=== PATIENT | male | born 1945 | race Caucasian/White ===

== ENCOUNTER 2017-04-01 09:40 | Day surgery (SDC) | payer MEDICARE, MEDICAID ==
[~2017-04-01] VITALS: Ht 188 cm; Wt 86.2 kg
[2017-04-01] VITALS (10 sets, daily range): BP systolic 107–124; BP diastolic 67–83
--- NOTE | 2017-04-01 07:00 | Pre-Procedure Note/Attestation ---
Pre-Procedure Note/Attestation Complete Prior to Procedure Planned Procedure: right Procedure Narrative: rt shoulder scope, sad, mini lilian, rtc repair Indications for Procedure Pre-Operative Diagnosis: rt shoulder rtc tear Attestation I attest that I discussed the nature of the procedure; its benefits; risks and complications; and alternatives (and the risks and benefits of such alternatives ), prior to the procedure, with the patient (or the patient's legal community health program representative). I attest that, if there was a reasonable possibility of needing a blood transfusion, the patient (or the patient's legal community health program representative) was given the [facility] standardized written summary, pursuant to the Uday Neli Blood Safety Act ([place] Health and Safety Code # 1645, as amended). I attest that I re-evaluated the patient just prior to the surgery and that there has been no change in the patient's H&P, except as documented below: NONE DARY GALEANO Apr 01, 2017 07:00
[~2017-04-01 09:40] MED LIST: ceFAZolin 1gm in D5W 55ml IVP ONE; celeBREX 200mg Cap **SURGERY PATIENTS ONLY ORAL ONE; oxyCONTIN 20mg tab ORAL ONE
[2017-04-01] MEDS ORDERED: LR 1000ml 1,000 ML IVLG SCH (10:04)
--- NOTE | 2017-04-01 10:09 | Anethesia Preoperative Eval ---
Anesthesia Pre-op PMH/ROS General Date of Evaluation: Apr 01, 2017 Time of Evaluation: 10:42 Anesthesiologist: Wayne ASA Score: ASA 3 Mallampati Score Class I : Soft palate, uvula, fauces, pillars visible Class II: Soft palate, uvula, fauces visible Class III: Soft palate, base of uvula visible Class IV: Only hard plate visible Mallampati Classification: Class II Surgeon: Mike Diagnosis: R Shoulder Pain Surgical Procedure: R Shoulder Arthroscopy, SAD, Mini Mickey, Rotator Cuff Repair Anesthesia History: none Family History: no anesthesia problems Allergies: Coded Allergies: No Known Allergies (Unverified , 03/31/17) Medications: see eMAR Past Medical History Cardiovascular: Reports: HTN, CAD - CABG, other - HL Pulmonary: Reports: MARGUERITE Hematology/Immune: Reports: other - HIV PSxH Narrative: CABG 2001 Anesthesia Pre-op Phys. Exam Physician Exam Constitutional: NAD Neurologic: CN 2-12 intact Cardiovascular: RRR Respiratory: CTA Gastrointestinal: S/NT/ND Airway Exam Mallampati Score: Class II MO: limited ROM: limited Teeth: intact Anesthesia Pre-op A/P Risk Assessment & Plan Assessment: ASA 3 Plan: GA, R Supraclavicular Block, BIS Status Change Before Surgery: No Pre-Antibiotics Dru Grams Ancef IV Given Within 1 Hr of Incision: Yes Time Given: 11:08 Iglesia Black MD Apr 01, 2017 10:09
--- NOTE | 2017-04-01 10:10 | Immediate Post-Op Evaluation ---
Immediate Post-Op Evalulation Immediate Post-Op Evalulation Procedure: R Shoulder Arthroscopy, SAD, Mini Mickey, Rotator Cuff Repair Date of Evaluation: Apr 01, 2017 Time of Evaluation: 13:25 IV Fluids: 1000 LR Blood Products: 0 Estimated Blood Loss: 20 Urinary Output: 0 Blood Pressure Systolic: 115 Blood Pressure Diastolic: 78 Pulse Rate: 84 Respiratory Rate: 16 O2 Sat by Pulse Oximetry: 100 Temperature (Fahrenheit): 97.4 Pain Score (1-10): 1 Nausea: No Vomiting: No Complications 0 Patient Status: awake, reacts, patent, extubated, none Hydration Status: adequate Dru Grams Ancef IV Given Within 1 Hr of Incision: Yes Time Given: 11:08 Iglesia Black MD Apr 01, 2017 10:10
--- NOTE | 2017-04-01 10:10 | 48 Hour Post Anesthesia Eval ---
Post Anesthesia Evaluation Procedure: R Shoulder Arthroscopy, SAD, Mini Mickey, Rotator Cuff Repair Date of Evaluation: Apr 01, 2017 Time of Evaluation: 15:42 Blood Pressure Systolic: 127 0: 74 Pulse Rate: 63 Respiratory Rate: 18 Temperature (Fahrenheit): 97.6 O2 Sat by Pulse Oximetry: 100 Airway: patent Nausea: No Vomiting: No Pain Intensity: 1 Hydration Status: adequate Cardiopulmonary Status: Stable Mental Status/LOC: patient returned to baseline Follow-up Care/Observations: 0 Post-Anesthesia Complications: 0 Follow-up care needed: ready to discharge Iglesia Black MD Apr 01, 2017 10:10
[2017-04-01] MEDS ORDERED: Ropivacaine 5mg/ml Vial 30ml INJ ONE (10:12)
[2017-04-01] MEDS ORDERED: Midazolam 2mg/2ml Inj IVP PRN (10:15)
[2017-04-01] MEDS ORDERED: Ketorolac 30mg Inj IV PRN (10:15)
[2017-04-01] MEDS ORDERED: Ketorolac 60mg Inj IV PRN (10:15)
[2017-04-01] MEDS ORDERED: oxyCODONE HCL/Acetaminophen 5/325mg ORAL PRN (10:15)
[2017-04-01] MEDS ORDERED: Hydromorphone 0.5mg/0.5ml inj IVP PRN (10:15)
[2017-04-01] MEDS ORDERED: HYDROcodone/Acetamin 7.5/325 tab ORAL PRN (10:15)
[2017-04-01] MEDS ORDERED: Atropine Inj 1mg/10ml Syr IV PRN (10:15)
[2017-04-01] MEDS ORDERED: LORazepam Inj 2mg/ml 1ml IV PRN (10:15)
[2017-04-01] MEDS ORDERED: fentaNYL 100 mcg/2 mL IV PRN (10:15)
[2017-04-01] MEDS ORDERED: DiphenhydrAMINE 50mg/ml Inj IVP PRN (10:15)
[2017-04-01] MEDS ORDERED: Norco 5mg/325mg tab ORAL PRN ×2 (10:15→16:31)
[2017-04-01] MEDS ORDERED: Labetalol 5mg/ml 20ml vial IV PRN (10:15)
[2017-04-01] MEDS ORDERED: NS Irrig 4000ml IRRIG ONE ×2 (10:45→12:23)
[2017-04-01] MEDS ORDERED: Alfentanil 2ml Inj ONE (10:45)
[2017-04-01] MEDS ORDERED: LR 1000ml ONE (10:45)
[2017-04-01] MEDS ORDERED: Glycopyrrolate 0.2mg/ml 1ml Vial ONE (10:45)
[2017-04-01] MEDS ORDERED: Midazolam 2mg/2ml Inj ONE (10:45)
[2017-04-01] MEDS ORDERED: Propofol 200mg/20ml IV ONE (10:45)
[2017-04-01] MEDS ORDERED: Succinylcholine 20mg/ml 10ml vial ONE (10:45)
[2017-04-01] MEDS ORDERED: Dexamethasone 4mg/ml vial ONE (10:45)
[2017-04-01] MEDS ORDERED: SEROSTIM6 M1 SQ (10:48)
[2017-04-01] MEDS ORDERED: ALTACE5 MG ORAL (10:48)
[2017-04-01] MEDS ORDERED: LOSARTAN POTASS25 MG ORAL (10:48)
[2017-04-01] MEDS ORDERED: RANITIDINE HCL150 MG ORAL (10:48)
[2017-04-01] MEDS ORDERED: PROSCAR5 MG ORAL (10:48)
[2017-04-01] MEDS ORDERED: METOPROLOL SUCC50 MG ORAL (10:48)
[2017-04-01] MEDS ORDERED: TESTOSTERO200 MG/1 M IM (10:48)
[2017-04-01] MEDS ORDERED: REPATHA SY140 MG/1 M SQ (10:48)
[2017-04-01] MEDS ORDERED: ALLOPURINOL300 M1 ORAL (10:48)
[2017-04-01] MEDS ORDERED: XANAX1 MG ORAL (10:48)
[2017-04-01] MEDS ORDERED: FOLGARD TABLET1 EAC1 PO (10:48)
[2017-04-01] MEDS ORDERED: TAMSULOSIN HCL0.4 MG ORAL (10:48)
[2017-04-01] MEDS ORDERED: CREON DR 12,001 EACH PO (10:48)
[2017-04-01] MEDS ORDERED: VALACYCLOVIR500 MG ORAL (10:48)
[2017-04-01] MEDS ORDERED: FENOFIBRATE 13134 MG ORAL (10:48)
[2017-04-01] MEDS ORDERED: EPINEPHrine 1mg/1ml Amp ONE (12:29)
--- NOTE | 2017-04-01 13:40 | Brief Operative Note ---
Immediate Post Operative Note Operative Note Chief Complaint: rt shoulder pain Pre-op Diagnosis: rt shoulder rtc tear Procedure: t shoulder scope, sad, mini lilian, rtc repair Post-op Diagnosis: same as pre-op Findings: consistent w/pre-op dx studies Surgeon: md geo Dray Truck Driver: hubert del valle Anesthesiologist: [email or web address]. yang Anesthesia: general, regional Specimen: none Complications: none Condition: stable Fluids: ns Estimated Blood Loss: minimal Drains: none Implant(s) used?: Yes - biomet LUIS ALFREDO DEL VALLE Apr 01, 2017 13:40
[2017-04-01] MEDS ORDERED: D5 1/2NS 1,000 ML IV SCH (16:31)
[2017-04-01] MEDS ORDERED: Tylenol #3 tab (300mg/30mg) ORAL PRN (16:31)
[2017-04-01] MEDS ORDERED: HYDROmorphone 1mg/ml Carpuject SUBQ PRN (16:31)
--- NOTE | 2017-04-01 22:15 | Operative Note - Dictated ---
DATE OF OPERATION: 04/01/2017 PREOP DX: Right shoulder rotator cuff tear. POSTOP DX: 1. Right shoulder large chondral defect over anterior inferior quarter of the glenoid with large chondral flap and loose fragment. 2. Right shoulder degenerative anterior as well as inferior labral tearing. 3. Right shoulder subacromial impingement. 4. Right shoulder 2 cm rotator cuff tear without retraction. PROCEDURES: 1. Right shoulder arthroscopy and extensive intra-articular shaving. 2. Right shoulder abrasion chondroplasty of the anterior inferior quarter of the glenoid. 3. Resection of loose fragment from the right shoulder measuring 1 cm of chondral loose fragment. 4. Right shoulder subacromial bursoscopy, bursectomy, and subacromial decompression. 5. Right shoulder mini-Mickey procedure (resection of inferior 30% of the distended clavicle for coplaning). 6. Right shoulder arthroscopic rotator cuff repair using two Biomet 2.9 mm JuggerKnot anchors SURGEON: Michele Mckeon M.D. OFFSET PRESS ASSISTANT: Pamela Gatica PA-C. Medical Stenographer was present during the actual operative portion of the case and was important and essential part of the operation. During the operation, the graduate assistant athletic trainer held and operated the arthroscopic camera for visualization, assisted by manipulating the arm to help with visualization, and helped with essential parts of the repair process as necessary such as operating surgical instruments under surgeon supervision, suture management, and wound closures. ANESTHESIOLOGIST: Iglesia Black M.D. ANESTHESIA: General LMA anesthesia. EBL: Minimal. COMPLICATIONS: None. SURGICAL INDICATION: Patient is a 72-year-old male who sustained the above injury to his shoulder. The patient was treated non-operative initially, but this did not alleviate the patients symptoms. Therefore, after discussing all non-surgical and surgical options, and discussing all foreseeable risk and benefits of surgery, the patient opted for surgical treatment as described above. PATIENT POSITIONING: Patient was brought to the operating room table and was placed on the operating room table. All pressure points were well padded. General anesthesia was induced and patient was then placed in the lateral decubitus position. All pressure points were well padded again and an axillary roll was placed. Patient shoulder was then prepped and draped in the usual sterile fashion. Time out was performed and the appropriate preoperative antibiotic was given by the anesthesiologist. EXAMINATION OF SHOULDER UNDER ANESTHESIA: The shoulder was examined under anesthesia with all muscles well relaxed. The shoulder was forward flexed, abducted and was placed through full range of external and internal rotation. The anterior, posterior, and inferior stability of the shoulder was checked. The exam revealed no evidence of adhesive capsulitis and no evidence of instability. PORTAL PLACEMENT: The posterior portal was established 2 cm inferior and 1 cm medial to the edge of the posterior acromion. 1 cm skin incision was made using an eleven blade and using the blunt obturator, the cannula was gently placed through the capsule. The midglenoid portal was established just lateral to the coracoid process under direct visualization. Direction of the cannula was first established using a spinal needle, and subsequently, the cannula was placed through the capsule with a blunt obturator. DIAGNOSTIC ARTHROSCOPY: The biceps tendon was probed and pulled through the joint for visualization. It appeared normal. The biceps anchor was palpated with a probe and was visualized. There was some degenerative superior as well as anterior labral tearing. However, there was no detachment of the biceps tendon. The posterior labrum and axillary recess was visualized. This was normal and there was no evidence of loose cartilage or fragments in this area. There was a large chondral flap and unstable chondral flap over the anterior inferior quarter of the glenoid measuring 1 x 1.5 cm. There was large loose chondral defect in that area. The articular surface of the rotator cuff was visualized and probed next. There was a full-thickness 2 cm rotator cuff tear without retraction. The humeral head articular surface was then visualized. There was no evidence of articular cartilage damage. Next, the anterior labrum, middle glenohumeral ligament, subscapularis tendon, and the anterior inferior glenohumeral ligament were evaluated. There was some degenerative anterior labral tearing, but there was no detachment of the glenoid labrum from glenoid. The subscapularis was intact. At this point, the scope was moved to the midglenoid portal and the posterior structures including the posterior labrum, posterior capsule and posterior cuff were visualized. These structures were completely normal. The subscapularis recess was devoid of any loose bodies and the anterior capsule was well attached to the humeral neck. The middle and anterior inferior glenohumeral ligament was visualized. These structures were completely normal. OPERATIVE DEBRIDEMENTS AND REPAIR: Care was given to all partial thickness tears and frayed structures in the shoulder joint. The frayed rotator cuff and labrum was debrided using a shaver initially through the anterior portal and subsequently through the posterior portal to complete the debridement. This allowed for smooth debridement of all affected structures and all loose fragments were removed. At this point, abrasion chondroplasty of the glenoid was performed to create bleeding surfaces and create fibrocartilage over the area. DIAGNOSTIC BURSOSCOPY AND SUBACROMIAL DECOMPRESSION: The subacromion bursa was entered from the posterior portal. The anterior portal was established under the CA ligament using a switching stick. Subacromial arthroscopy was initiated. There was extensive bursitis and thickened and inflamed bursa tissue present. The CA ligament appeared to be scuffed and frayed. The shaver was placed through the anterior cannula and debridement of the hypertrophic bursa tissue was accomplished. Once visualization was adequate, a lateral portal was established using a blunt trochar in the mid portion of the acromion bone in the anterior-posterior direction and approximately 2 cm lateral to the lateral edge of the acromion. Using combination of shaver and electrocautery the CA ligament was released from the undersurface of the acromion and a complete bursectomy was accomplished. At this point, a subacromial decompression was performed using a tevin initially taking off 5-8 mm of the anterolateral edge of the acromion from the lateral portal and viewing from the posterior portal. Then the lateral border of the undersurface of the acromion was decompressed to the same dept as the anterolateral edge. A posterior trough was then created in the acromion in line with the posterior edge of the clavicle. At this point, the scope was placed in the lateral portal and the subacromial decompression was performed from the posterior portal decompressing the undersurface of the acromion to dept of 5-8 mm. The decompression was performed anterior to the previously marked trough all the way medially to the level of the AC joint. At all times, care was given not to take off too much bone in order to avoid risk of fracture of the acromion. An excellent subacromial decompression was performed in this fashion. At this point, the bursal side of the rotator cuff was examined. All the bursa over the rotator cuff was removed and the rotator cuff was examined with a probe. The arm was placed into external rotation, neutral, and then internal rotation and a 2 cm non-retracted rotator cuff tear. The scope was then placed in the posterior portal and the subacromial decompression was rechecked to assure there is no area of bone spur that would be still impinging onto the rotator cuff. EVALUATION OF DISTAL CLAVICLE AND DISTAL CLAVICLE RESECTION: Care was given to the distal end of the clavicle. Using electrocautery and rosalinda, the distal end of the bursa and soft tissue around the distal end of the clavicle was debrided and cleaned. Care was given not to inflict excessive trauma to the ligaments of the AC joint. The distal end of the clavicle appeared to have an inferior osteophyte extending down well bellow the level of the acromion at the level of the AC joint. This appeared to be impinging onto the supraspinatus muscle belly and the musculotendinous junction of the rotator cuff. A mini-Mickey procedure was performed by using a tevin to resect the inferior 30% of the distal end of the clavicle. This decompression allowed space for the inferior structures to slide without impingement. This co-plained the inferior edge of the distal clavicle with the inferior edge of the acromion. The scope was placed in the lateral portal and the rotator cuff was visualized. The rotator cuff revealed a 2 cm crescent-shaped non-retracted tear. The rotator cuff foot print adjacent to the articular cartilage of the humeral head was identified. This area was debrided initially using rosalinda and subsequently using tevin to provide adequate bleeding bony surface to accept the rotator cuff tendon. Attention was given to repair the rotator cuff with as little tension as possible. At this point, an arthroscopic punch was used to create holes for suture anchor placement at the medial edge of the foot print through separate stab wound incisions and an arthroscopic tap was used to prepare the holes. Two Biomet 2.9 mm JuggerKnot anchors double loaded with two #2 non-absorbable strong sutures were placed in previously prepared holes. Using standard arthroscopic suture passing instruments, the sutures were passed through the edge of rotator cuff with minimal trauma to the cuff tissue. Care was given to obtain large enough bites of the rotator cuff for the sutures to hold well. Once the sutures were passed through the cuff, the repair was secured onto the rotator cuff foot print using SMC sliding knots followed by 3 alternating-post half hitches. This allowed tension free repair of the rotator cuff with excellent stability and water tight closure. The cuff repair security was assured by palpating the repair with a probe. CONDITION AT DISCHARGE FROM OPERATING ROOM: The skin was re-approximated and sterile dressing and sling were applied. All lap counts and instrument counts were correct. Patient tolerated the procedure well without complications and was taken to the recovery room in stable conditions. Michele Mckeon M.D. DR: BLAIRE JOB#: [id number] CC:
--- NOTE | 2017-04-02 17:23 | Cardiology Report ---
APPROVED REPORT EKG Measurement Heart [id number] Sinus rhythm with 1st degree AV block Left axis deviation Nonspecific intraventricular block T wave abnormality, consider lateral ischemia Abnormal ECG
== END 2017-04-01 15:20 | disposition home or self-care (01) ==
LOC: SUR 09:40
DX: M75.41 Impingement syndrome of right shoulder (principal); M75.101 Unspecified rotator cuff tear or rupture of right shoulder, not specified as traumatic; B20 Human immunodeficiency virus [HIV] disease; G62.9 Polyneuropathy, unspecified; I13.10 Hypertensive heart and chronic kidney disease without heart failure, with stage 1 through stage 4 chronic kidney disease, or unspecified chronic kidney disease; N18.9 Chronic kidney disease, unspecified; M51.36 Other intervertebral disc degeneration, lumbar region; F32.9 Major depressive disorder, single episode, unspecified; Z83.3 Family history of diabetes mellitus; Z80.0 Family history of malignant neoplasm of digestive organs; I44.0 Atrioventricular block, first degree
CPT/HCPCS: 29819; 29824; 29826; 29827; 93005; J0171; J0330; J0690; J1100; J2250; J2405; J2704; J2795; J3490; J7120; 94003; 94150; C1713